=== PATIENT | male | born 1995 | race Caucasian/White ===

== ENCOUNTER 2018-06-05 19:35 | Emergency (ER) | payer OTHER ==
[~2018-06-05] VITALS: Ht 157.5 cm; Wt 59.0 kg
[~2018-06-05 19:35] MED LIST: AFRIN MENTHOL S15 ML NS; AMOXICILLIN500 M1 PO; AZITHROMYCIN 2250 MG PO; CIPROFLOXACIN500 M1 PO; HYDROCODON-ACE1 EAC7 PO; IBUPROFEN 800800 MG PO; NOHOMEMEDICATIONS; NORCO 5-325 TA1 EACH PO; TORADOL 10 MG T10 MG PO; TRAMADOL 50 MG50 MG PO
[2018-06-05] MEDS ORDERED: MEDROLDOSEPACK PO (20:47)
[2018-06-05] MEDS ORDERED: KEFLEX500 M1 PO (20:47)
[2018-06-05 20:52] VITALS: BP 123/68
== END 2018-06-05 20:53 | disposition home or self-care (01) ==
LOC: M.ERS 19:35
DX: J02.9 Acute pharyngitis, unspecified (principal); F17.210 Nicotine dependence, cigarettes, uncomplicated

== ENCOUNTER 2020-11-16 18:53 | Emergency (ER) | payer OTHER ==
[~2020-11-16] VITALS: Ht 160 cm; Wt 59.0 kg
[~2020-11-16 18:53] MED LIST changes: +KEFLEX500 M1 PO; +MEDROLDOSEPACK PO
[2020-11-16] MEDS ORDERED: DOXYCYCLINE 10100 MG PO (19:46)
[2020-11-16 20:05] VITALS: BP 126/65
== END 2020-11-16 20:06 | disposition home or self-care (01) ==
LOC: M.ERS 18:53
DX: L02.01 Cutaneous abscess of face (principal); F17.210 Nicotine dependence, cigarettes, uncomplicated